=== PATIENT | male | born 1975 | race Two or more races ===

== ENCOUNTER 2018-03-11 11:26 | Inpatient (IN) | payer OTHER ==
[2018-03-11 12:05] VITALS: BMI 20.6
--- NOTE | 2018-03-11 15:43 | HP ---
CIWA Score Nausea/Vomitin Muscle Tremors: 2 Anxiety: 2 Agitation: 2 Paroxysmal Sweats: 1-Minimal Palms Moist Orientation: 0-Oriented Tacttile Disturbances: 1-Very Mild Itch/Numbness Auditory Disturbances: 1-Very Mild Visual Disturbances: 0-None Headache: 2-Mild CIWA-Ar Total Score: 13 - Admission Criteria OASAS Guidelines: Admission for Medically Managed Detox: Requires at least one of the followin. CIWA greater than 12 2. Seizures within the past 24 hours 3. Delirium tremens within the past 24 hours 4. Hallucinations within the past 24 hours 5. Acute intervention needed for co occurring medical disorder 6. Acute intervention needed for co occurring psychiatric disorder 7. Severe withdrawal that cannot be handled at a lower level of care (continued vomiting, continued diarrhea, abnormal vital signs) requiring intravenous medication and/or fluids 8. Patient presents the following: CIWA greater than 12 Admission Criteria Met: Admission criteria met Admission ROS [facility] - HPI Chief Complaint: i need help to stop drinking alcohol,cocaine,heroin abused,on methadone maintainence 75 mgs/day,.last medicated today, nicotine dependence weigh tloss depression,no medication longest time of sobriety 4 years Allergies/Adverse Reactions: Allergies Allergy/AdvReac Type Severity Reaction Status Date / Time nicotine [From Nicoderm CQ] Allergy Mild Rash Verified 03/11/18 16:53 No Known Drug Allergies Allergy Verified 03/11/18 16:49 nicotine transdermal Allergy Mild Rash Uncoded 03/11/18 13:31 History of Present Illness: this 42 years old male with alcohol,cocaine dependence,heroin abused,mmtp 75 mgs /day as mentioned Exam Limitations: No Limitations - Ebola screening Have you traveled outside of the country in the last 21 days: No Have you had contact with anyone from an Ebola affected area: No Have you been sick,other than usual withdrawal symptoms: No - Review of Systems Constitutional: Loss of Appetite, Malaise, Night Sweats, Changes in sleep, Unintentional Wgt. Loss EENT: reports: Nose Congestion Respiratory: reports: No Symptoms reported Cardiac: reports: No Symptoms Reported GI: reports: Diarrhea, Nausea, Abdominal cramping : reports: No Symptoms Reported Musculoskeletal: reports: Back Pain, Muscle Pain Integumentary: reports: Dryness Neuro: reports: Headache, Tremors Endocrine: reports: No Symptoms Reported Hematology: reports: No Symptoms Reported Psychiatric: reports: No Sypmtoms Reported, Mood/Affect Appropiate, Orientated x3, Depressed (depression no med) Patient History - Patient Medical History Hx Anemia: No Hx Asthma: Yes (as a child) Hx Chronic Obstructive Pulmonary Disease (COPD): No Hx Cancer: No Hx Cardiac Disorders: No Hx Congestive Heart Failure: No Hx Hypertension: No Hx Hypercholesterolemia: No Hx Pacemaker: No HX Cerebrovascular Accident: No Hx Seizures: No Hx Dementia: No Hx Diabetes: No Hx Gastrointestinal Disorders: No Hx Liver Disease: No Hx Genitourinary Disorders: No Hx Sexually Transmitted Disorders: No Hx Renal Disease (ESRD): No Hx Thyroid Disease: No Hx Human Immunodeficiency Virus (HIV): No (09/17 negative) Hx Hepatitis C: Yes (treated) Hx Depression: Yes (no med) Hx Suicide Attempt: No Hx Bipolar Disorder: No Hx Schizophrenia: No Other Medical History: mno suicidal,no homicidal - Patient Surgical History Past Surgical History: No Hx Neurologic Surgery: No Hx Cataract Extraction: No Hx Cardiac Surgery: No Hx Lung Surgery: No Hx Breast Surgery: No Hx Breast Biopsy: No Hx Abdominal Surgery: No Hx Appendectomy: No Hx Cholecystectomy: No Hx Genitourinary Surgery: No Hx Section: No Hx Orthopedic Surgery: No Anesthesia Reaction: No - PPD History Previous Implant?: Yes Documented Results: Negative w/proof Implanted On Prior [facility] Admission?: Yes Date: 12/16/13 Results: 0 mm PPD to be Administered?: Yes - Smoking Cessation Smoking history: Current every day smoker Have you smoked in the past 12 months: Yes Aproximately how many cigarettes per day: 10 Hx Chewing Tobacco Use: No Initiated information on smoking cessation: Yes 'Breaking Loose' booklet given: 03/11/18 - Substance & Tx. History Hx Alcohol Use: Yes Hx Substance Use: Yes Substance Use Type: Alcohol, Cocaine, Heroin Hx Substance Use Treatment: Yes ([facility] in 2013) - Substances Abused Heroin Route: Injection Frequency: Daily Amount used: 8-10 bags Age of first use: 13 Date of Last Use: 03/11/18 Cocaine Route: Injection Frequency: Daily Amount used: $80 Age of first use: 13 Date of Last Use: 03/11/18 Alcohol-beer Route: Oral Frequency: Daily Amount used: 1-6 pk. Age of first use: 13 Date of Last Use: 03/10/18 Family Disease History - Family Disease History Family History: Denies Admission Physical Exam [facility] - Vital Signs Vital Signs: Vital Signs - 24 hr 03/11/18 11:59 Temperature 98.1 F Pulse Rate 80 Respiratory 18 Rate Blood Pressure 114/75 - Physical General Appearance: Yes: Moderate Distress, Tremorous, Irritable, Sweating, Anxious HEENTM: Yes: Normal ENT Inspection, PORFIRIO, Pharynx Normal Respiratory: Yes: Lungs Clear, Normal Breath Sounds, No Respiratory Distress Neck: Yes: Within Normal Limits, Supple, Trachea in good position Breast: Yes: Within Normal Limits Cardiology: Yes: Regular Rhythm, Regular Rate, S1, S2 Abdominal: Yes: Within Normal Limits, Normal Bowel Sounds, Non Tender, Flat, Soft Genitourinary: Yes: Within Normal Limits Musculoskeletal: Yes: Back pain, Muscle Pain Extremities: Yes: Within Normal Limits, Normal Range of Motion, Tremors Neurological: Yes: senior tax analyst II-XII NML intact, Fully Oriented, Alert, Motor Strength 5/5 Integumentary: Yes: Dry Lymphatic: Yes: Within Normal Limits - Diagnostic (1) Alcohol dependence with uncomplicated withdrawal Current Visit: Yes Status: Acute (2) Cocaine dependence Current Visit: Yes Status: Acute (3) Heroin abuse Current Visit: Yes Status: Acute (4) Methadone maintenance therapy patient Current Visit: Yes Status: Acute (5) Hepatitis C Current Visit: Yes Status: Acute (6) Weight loss Current Visit: Yes Status: Acute (7) Dehydration Current Visit: Yes Status: Acute Cleared for Admission [facility] - Detox or Rehab [facility] Level of Care: Medically Managed Detox Regimen/Protocol: Librium [facility] Breath Alcohol Content Breath Alcohol Content: 0 Urine Drug Screen - Results Drug Screen Negative: No Urine Drug Screen Results: KAPIL-Cocaine, OPI-Opiates, MTD-Methadone
[2018-03-11] MEDS ORDERED: MAGNESIUM HYDROX 2400MG/30ML ORAL SUSPENSION 30 ML CUP PO PRN (15:51)
[2018-03-11] MEDS ORDERED: P-EPHED 60MG/TRIPROLIDI 2.5MG TABLET PO PRN (15:51)
[2018-03-11] MEDS ORDERED: ACETAMINOPHEN 325 MG TABLET (FP) PO PRN (15:51)
[2018-03-11] MEDS ORDERED: chlordiazePOXIDE HCL 25 MG CAPSULE PO PRN (15:51)
[2018-03-11] MEDS ORDERED: MAGNESIUM CITRATE 300 ML BOTTLE PO PRN (15:51)
[2018-03-11] MEDS ORDERED: guaiFENesin/D-METHORPHAN HB 10 ML UNIT-DOSE CUPS PO PRN (15:51)
[2018-03-11] MEDS ORDERED: MENTHOL/PHENOL 1 EACH UD MM PRN (15:51)
[2018-03-11] MEDS ORDERED: MAG HYDROX/AL HYDROX/SIMETH 30 ML UNIT-DOSE CUP PO PRN (15:51)
[2018-03-11] MEDS ORDERED: NICOTINE POLACRILEX 2 MG GUM BC PRN (15:51)
[2018-03-11] MEDS ORDERED: LOPERAMIDE HCL 2 MG CAPSULE PO PRN (15:51)
[2018-03-11] MEDS ORDERED: hydrOXYzine PAMOATE 50 MG CAPSULE (FP) PO PRN (15:51)
[2018-03-11] MEDS ORDERED: IBUPROFEN 400 MG TABLET (FP) PO PRN (15:51)
[2018-03-11] MEDS: chlordiazePOXIDE HCL 25 MG CAPSULE PO SCH ×2 (18:04→22:36)
[2018-03-11] MEDS: MELATONIN 5 MG TABLETS PO PRN (22:37)
[2018-03-11] MEDS: THIAMINE HCL 100 MG TABLET (FP) PO SCH (22:37)
[2018-03-12] MEDS: chlordiazePOXIDE HCL 25 MG CAPSULE PO SCH ×4 (05:34→22:21)
[2018-03-12] MEDS ORDERED: METHADONE HCL 40 MG DISPERSABLE TABLET ONE (05:36)
[2018-03-12] MEDS ORDERED: METHADONE HCL 10 MG TABLET ONE (05:36)
[2018-03-12] MEDS ORDERED: METHADONE HCL 5 MG TABLET ONE (05:37)
[2018-03-12] MEDS: METHADONE 40 MG, METHADONE 30 MG, METHADONE 5 MG PO SCH (05:37)
[2018-03-12] MEDS ORDERED: METHADONE HCL 40 MG DISPERSABLE TABLET PO SCH (06:00)
[2018-03-12] MEDS: PRENATAL VITAMINS W/ FOLIC ACID TABLET (FP) PO SCH (10:36)
[2018-03-12 11:03] LABS: ALK PHOS 128 U/L (45-117); ANION GAP 6 MMOL/L (8-16); BILIRUBIN,TOTAL 0.4 mg/dL (0.2-1); BLOOD UREA NITROGEN 15 mg/dL (7-18); CALCIUM 9.1 mg/dL (8.5-10.1); CHLORIDE 105 mmol/L (98-107); CO2 30 mmol/L (21-32); CREATININE 0.9 mg/dL (0.55-1.3); GLUCOSE,RANDOM 68 mg/dL (74-106); POTASSIUM 4.2 mmol/L (3.5-5.1); SGOT/AST 24 U/L (15-37); SGPT/ALT 32 U/L (13-61); SODIUM 141 mmol/L (136-145); TOT PROT 7.6 g/dl (6.4-8.2)
[2018-03-12 11:09] LABS: HEMATOCRIT 42.5 % (35.4-49); HEMOGLOBIN 13.7 GM/dL (11.7-16.9); MCH 29.6 pg (25.7-33.7); MCHC 32.3 g/dl (32.0-35.9); MEAN CELL VOLUME 91.5 fl (80-96); MEAN PLT VOLUME 9.1 fl (7.5-11.1); PLATELET COUNT 248 K/MM3 (134-434); RBC 4.65 M/mm3 (4.00-5.60); RDW 15.5 % (11.9-15.9); WHITE BLOOD COUNT 6.8 K/mm3 (4.0-10.0)
--- NOTE | 2018-03-12 12:57 | PN ---
S CIWA - CIWA Score Nausea/Vomitin-Mild Nausea/No Vomiting Muscle Tremors: 3 Anxiety: 3 Agitation: 2 Paroxysmal Sweats: 1-Minimal Palms Moist Orientation: 1-Uncertain about Date Tacttile Disturbances: 0-None Auditory Disturbances: 0-None Visual Disturbances: 0-None Headache: 2-Mild CIWA-Ar Total Score: 13 S Progress Note (SOAP) Subjective: trouble sleep at night low energy tremor anxiety sweat Objective: 03/12/18 12:57 Vital Signs Temperature 98.9 F 03/12/18 12:21 Pulse Rate 87 03/12/18 12:21 Respiratory Rate 18 03/12/18 12:21 Blood Pressure 112/80 03/12/18 12:21 O2 Sat by Pulse Oximetry (%) Laboratory Last Values WBC 6.8 K/mm3 (4.0-10.0) 03/12/18 05:45 RBC 4.65 M/mm3 (4.00-5.60) 03/12/18 05:45 Hgb 13.7 GM/dL (11.7-16.9) 03/12/18 05:45 Hct 42.5 % (35.4-49) 03/12/18 05:45 MCV 91.5 fl (80-96) 03/12/18 05:45 MCH 29.6 pg (25.7-33.7) 03/12/18 05:45 MCHC 32.3 g/dl (32.0-35.9) 03/12/18 05:45 RDW 15.5 % (11.9-15.9) 03/12/18 05:45 Plt Count 248 K/MM3 (134-434) D 03/12/18 05:45 MPV 9.1 fl (7.5-11.1) 03/12/18 05:45 Sodium 141 mmol/L (136-145) 03/12/18 05:45 Potassium 4.2 mmol/L (3.5-5.1) 03/12/18 05:45 Chloride 105 mmol/L (98-107) 03/12/18 05:45 Carbon Dioxide 30 mmol/L (21-32) 03/12/18 05:45 Anion Gap 6 MMOL/L (8-16) L 03/12/18 05:45 BUN 15 mg/dL (7-18) 03/12/18 05:45 Creatinine 0.9 mg/dL (0.55-1.3) 03/12/18 05:45 Creat Clearance w eGFR > 60 (>60) 03/12/18 05:45 Random Glucose 68 mg/dL (74-106) L 03/12/18 05:45 Calcium 9.1 mg/dL (8.5-10.1) 03/12/18 05:45 Total Bilirubin 0.4 mg/dL (0.2-1) 03/12/18 05:45 AST 24 U/L (15-37) 03/12/18 05:45 ALT 32 U/L (13-61) 03/12/18 05:45 Alkaline Phosphatase 128 U/L (45-117) H 03/12/18 05:45 Total Protein 7.6 g/dl (6.4-8.2) 03/12/18 05:45 Albumin 4.0 g/dl (3.4-5.0) 03/12/18 05:45 RPR Titer Nonreactive (NONREACTIVE) 03/12/18 05:45 HIV 1&2 Antibody Screen Negative 03/11/18 14:30 HIV P24 Antigen Negative 03/11/18 14:30 lab noted Assessment: 03/12/18 12:57 withdrawal sx Plan: continue detox
[2018-03-12] MEDS: THIAMINE HCL 100 MG TABLET (FP) PO SCH (22:21)
[2018-03-13] MEDS ORDERED: METHADONE HCL 10 MG TABLET ONE (04:48)
[2018-03-13] MEDS ORDERED: METHADONE HCL 5 MG TABLET ONE (04:49)
[2018-03-13] MEDS ORDERED: METHADONE HCL 40 MG DISPERSABLE TABLET ONE (04:49)
[2018-03-13] MEDS: chlordiazePOXIDE HCL 25 MG CAPSULE PO SCH ×2 (05:47→12:34)
[2018-03-13] MEDS: METHADONE 40 MG, METHADONE 30 MG, METHADONE 5 MG PO SCH (05:47)
--- NOTE | 2018-03-13 10:09 | PN ---
S CIWA - CIWA Score Nausea/Vomitin-No Nausea/No Vomiting Muscle Tremors: 3 Anxiety: 2 Agitation: 3 Paroxysmal Sweats: 1-Minimal Palms Moist Orientation: 0-Oriented Tacttile Disturbances: 0-None Auditory Disturbances: 0-None Visual Disturbances: 0-None Headache: 2-Mild CIWA-Ar Total Score: 11 S Progress Note (SOAP) Subjective: tremor sweat anxiety requests methadone gives at 10 am Objective: 03/13/18 10:08 Vital Signs Temperature 96.7 F L 03/13/18 09:18 Pulse Rate 83 03/13/18 09:18 Respiratory Rate 17 03/13/18 09:18 Blood Pressure 101/65 03/13/18 09:18 O2 Sat by Pulse Oximetry (%) Laboratory Last Values WBC 6.8 K/mm3 (4.0-10.0) 03/12/18 05:45 RBC 4.65 M/mm3 (4.00-5.60) 03/12/18 05:45 Hgb 13.7 GM/dL (11.7-16.9) 03/12/18 05:45 Hct 42.5 % (35.4-49) 03/12/18 05:45 MCV 91.5 fl (80-96) 03/12/18 05:45 MCH 29.6 pg (25.7-33.7) 03/12/18 05:45 MCHC 32.3 g/dl (32.0-35.9) 03/12/18 05:45 RDW 15.5 % (11.9-15.9) 03/12/18 05:45 Plt Count 248 K/MM3 (134-434) D 03/12/18 05:45 MPV 9.1 fl (7.5-11.1) 03/12/18 05:45 Sodium 141 mmol/L (136-145) 03/12/18 05:45 Potassium 4.2 mmol/L (3.5-5.1) 03/12/18 05:45 Chloride 105 mmol/L (98-107) 03/12/18 05:45 Carbon Dioxide 30 mmol/L (21-32) 03/12/18 05:45 Anion Gap 6 MMOL/L (8-16) L 03/12/18 05:45 BUN 15 mg/dL (7-18) 03/12/18 05:45 Creatinine 0.9 mg/dL (0.55-1.3) 03/12/18 05:45 Creat Clearance w eGFR > 60 (>60) 03/12/18 05:45 Random Glucose 68 mg/dL (74-106) L 03/12/18 05:45 Calcium 9.1 mg/dL (8.5-10.1) 03/12/18 05:45 Total Bilirubin 0.4 mg/dL (0.2-1) 03/12/18 05:45 AST 24 U/L (15-37) 03/12/18 05:45 ALT 32 U/L (13-61) 03/12/18 05:45 Alkaline Phosphatase 128 U/L (45-117) H 03/12/18 05:45 Total Protein 7.6 g/dl (6.4-8.2) 03/12/18 05:45 Albumin 4.0 g/dl (3.4-5.0) 03/12/18 05:45 RPR Titer Nonreactive (NONREACTIVE) 03/12/18 05:45 HIV 1&2 Antibody Screen Negative 03/11/18 14:30 HIV P24 Antigen Negative 03/11/18 14:30 lab noted Assessment: 03/13/18 10:09 withdrawal sx Plan: continue detox
[2018-03-13] MEDS: PRENATAL VITAMINS W/ FOLIC ACID TABLET (FP) PO SCH (10:34)
[2018-03-13] MEDS: chlordiazePOXIDE 5 MG CAPSULE PO SCH ×2 (17:38→22:38)
[2018-03-13] MEDS: THIAMINE HCL 100 MG TABLET (FP) PO SCH (22:38)
[2018-03-13] MEDS: MELATONIN 5 MG TABLETS PO PRN (23:36)
[2018-03-14] MEDS: chlordiazePOXIDE 5 MG CAPSULE PO SCH ×2 (05:25→11:32)
[2018-03-14] MEDS ORDERED: ONDANSETRON *ODT* 4 MG TABLET SL ONE (08:32)
--- NOTE | 2018-03-14 12:08 | PN ---
[facility] Progress Note (SOAP) Subjective: reported mild alcohol withdrawal sx today had "dirty" water after breakfast vomited out food residue and continue vomiting "can not stop" bp 99/65 ap 60 rr 17 abdomen + BS x 4 soft none tender Objective: 03/14/18 12:07 Vital Signs Temperature 96.9 F L 03/14/18 09:00 Pulse Rate 60 03/14/18 09:00 Respiratory Rate 16 03/14/18 09:00 Blood Pressure 99/65 03/14/18 09:00 O2 Sat by Pulse Oximetry (%) Laboratory Last Values WBC 6.8 K/mm3 (4.0-10.0) 03/12/18 05:45 RBC 4.65 M/mm3 (4.00-5.60) 03/12/18 05:45 Hgb 13.7 GM/dL (11.7-16.9) 03/12/18 05:45 Hct 42.5 % (35.4-49) 03/12/18 05:45 MCV 91.5 fl (80-96) 03/12/18 05:45 MCH 29.6 pg (25.7-33.7) 03/12/18 05:45 MCHC 32.3 g/dl (32.0-35.9) 03/12/18 05:45 RDW 15.5 % (11.9-15.9) 03/12/18 05:45 Plt Count 248 K/MM3 (134-434) D 03/12/18 05:45 MPV 9.1 fl (7.5-11.1) 03/12/18 05:45 Sodium 141 mmol/L (136-145) 03/12/18 05:45 Potassium 4.2 mmol/L (3.5-5.1) 03/12/18 05:45 Chloride 105 mmol/L (98-107) 03/12/18 05:45 Carbon Dioxide 30 mmol/L (21-32) 03/12/18 05:45 Anion Gap 6 MMOL/L (8-16) L 03/12/18 05:45 BUN 15 mg/dL (7-18) 03/12/18 05:45 Creatinine 0.9 mg/dL (0.55-1.3) 03/12/18 05:45 Creat Clearance w eGFR > 60 (>60) 03/12/18 05:45 Random Glucose 68 mg/dL (74-106) L 03/12/18 05:45 Calcium 9.1 mg/dL (8.5-10.1) 03/12/18 05:45 Total Bilirubin 0.4 mg/dL (0.2-1) 03/12/18 05:45 AST 24 U/L (15-37) 03/12/18 05:45 ALT 32 U/L (13-61) 03/12/18 05:45 Alkaline Phosphatase 128 U/L (45-117) H 03/12/18 05:45 Total Protein 7.6 g/dl (6.4-8.2) 03/12/18 05:45 Albumin 4.0 g/dl (3.4-5.0) 03/12/18 05:45 RPR Titer Nonreactive (NONREACTIVE) 03/12/18 05:45 HIV 1&2 Antibody Screen Negative 03/11/18 14:30 HIV P24 Antigen Negative 03/11/18 14:30 lab noted Assessment: 03/14/18 12:07 mild alcohol withdrawal sx vomiting Plan: medically supervised detox patient requests ER evaluation for vomiting from "dirty" water ambulance called information provided to ER disposition: based on the timing of release from ER once medically cleared 1. return to detox discharge 03/15/18 to [facility] 2. [facility]hab if possible on 03/15/18
[2018-03-14] MEDS ORDERED: METHADONE HCL 10 MG TABLET PO ONE (15:55)
[2018-03-14] MEDS ORDERED: METHADONE 40 MG, METHADONE 30 MG, METHADONE 5 MG PO ONE (16:30)
[2018-03-14] MEDS ORDERED: METHADONE HCL 10 MG TABLET ONE (16:48)
[2018-03-14] MEDS ORDERED: METHADONE HCL 40 MG DISPERSABLE TABLET ONE (16:49)
[2018-03-14] MEDS ORDERED: METHADONE HCL 5 MG TABLET ONE (16:49)
[2018-03-14] MEDS: METHADONE 40 MG, METHADONE 30 MG, METHADONE 5 MG PO SCH (16:53)
[2018-03-14] MEDS: PRENATAL VITAMINS W/ FOLIC ACID TABLET (FP) PO SCH (16:54)
[2018-03-14] MEDS: chlordiazePOXIDE HCL 10 MG CAPSULE PO SCH ×2 (16:57→22:10)
--- NOTE | 2018-03-14 17:29 | PN ---
[facility] Progress Note (SOAP) Subjective: Patient returns from ER and states is feeling a little better but nausea continues. Denies recent vomiting. Denies abdominal pain. Objective: Returned from [facility] ER post evaluation of vomiting. Alert. Abd S/NT/BS hyperactive. Vital Signs 03/14/18 17:28 Temperature 97.0 F L Pulse Rate 74 Respiratory 18 Rate Blood Pressure 117/82 Assessment: Nausea Withdrawal symptoms Plan: Continue detox. Tigan prn.
[2018-03-14] MEDS ORDERED: TRIMETHOBENZAMIDE HCL 300 MG CAPSULE PO PRN (21:33)
[2018-03-14] MEDS: THIAMINE HCL 100 MG TABLET (FP) PO SCH (22:10)
[2018-03-15] MEDS: MELATONIN 5 MG TABLETS PO PRN (00:44)
[2018-03-15] MEDS ORDERED: METHADONE HCL 5 MG TABLET ONE ×2 (04:50→08:57)
[2018-03-15] MEDS ORDERED: METHADONE HCL 40 MG DISPERSABLE TABLET ONE ×2 (04:50→08:57)
[2018-03-15] MEDS ORDERED: METHADONE HCL 10 MG TABLET ONE ×2 (04:50→08:57)
[2018-03-15] MEDS: chlordiazePOXIDE HCL 10 MG CAPSULE PO SCH ×2 (07:29→10:14)
--- NOTE | 2018-03-15 09:20 | PN ---
[facility] Progress Note (SOAP) Subjective: I'M better Objective: 03/15/18 09:17 Vital Signs Temperature 97.1 F L 03/15/18 06:08 Pulse Rate 57 L 03/15/18 06:08 Respiratory Rate 18 03/15/18 06:08 Blood Pressure 90/62 03/15/18 06:08 O2 Sat by Pulse Oximetry (%) Laboratory Tests 03/11/18 03/12/18 03/12/18 14:30 05:45 05:45 WBC 6.8 RBC 4.65 Hgb 13.7 Hct 42.5 MCV 91.5 MCH 29.6 MCHC 32.3 RDW 15.5 Plt Count 248 D MPV 9.1 Sodium 141 Potassium 4.2 Chloride 105 Carbon Dioxide 30 Anion Gap 6 L BUN 15 Creatinine 0.9 Creat Clearance w eGFR > 60 Random Glucose 68 L Calcium 9.1 Total Bilirubin 0.4 AST 24 ALT 32 Alkaline Phosphatase 128 H Total Protein 7.6 Albumin 4.0 RPR Titer HIV 1&2 Antibody Screen Negative HIV P24 Antigen Negative 03/12/18 05:45 WBC RBC Hgb Hct MCV MCH MCHC RDW Plt Count MPV Sodium Potassium Chloride Carbon Dioxide Anion Gap BUN Creatinine Creat Clearance w eGFR Random Glucose Calcium Total Bilirubin AST ALT Alkaline Phosphatase Total Protein Albumin RPR Titer Nonreactive HIV 1&2 Antibody Screen HIV P24 Antigen pt aox3 in nad ambulating Assessment: 03/15/18 09:18 detox completed Plan: d/c today cont fluids resume rx'ed meds
--- NOTE | 2018-03-15 09:23 | DS ---
[facility] Detox Discharge Summary Admission Date: 03/11/18 Discharge Date: 03/15/18 - History Present History: Alcohol Dependence, Cocaine Dependence - Physical Exam Results Vital Signs: Vital Signs Temperature 97.1 F L 03/15/18 06:08 Pulse Rate 57 L 03/15/18 06:08 Respiratory Rate 18 03/15/18 06:08 Blood Pressure 90/62 03/15/18 06:08 O2 Sat by Pulse Oximetry (%) - Treatment Hospital Course: Detox Protocol Followed, Detoxed Safely, Responded well, Discharged Condition Good Patient has Accepted a Rehab Referral to: [facility] [place] - Medication Discharge Medications: Ambulatory Orders NK [No Known Home Medication] 03/14/18 - Diagnosis (1) Alcohol dependence with uncomplicated withdrawal Current Visit: Yes Status: Chronic (2) Cocaine dependence Current Visit: Yes Status: Chronic Qualifiers: Substance use status: uncomplicated Qualified Code(s): F14.20 - Cocaine dependence, uncomplicated (3) Hepatitis C Current Visit: Yes Status: Chronic Qualifiers: Viral hepatitis chronicity: chronic (4) Methadone maintenance therapy patient Current Visit: Yes Status: Chronic - AMA Did Patient Leave Against Medical Advice: No
[2018-03-15] MEDS: PRENATAL VITAMINS W/ FOLIC ACID TABLET (FP) PO SCH (10:12)
[2018-03-15] MEDS: METHADONE 40 MG, METHADONE 30 MG, METHADONE 5 MG PO SCH (10:12)
[2018-03-15 10:47] VITALS: BP 106/68; PULSE 102; TEMP 97.4
== END 2018-03-15 12:40 | disposition other institution (70) | DRG 773 ==
LOC: YASAS 11:26 → Y3N 15:53
PROC: HZ2ZZZZ Detoxification Services for Substance Abuse Treatment (ICD-10-PCS; principal; 2018-03-11)
DX: F10.230 Alcohol dependence with withdrawal, uncomplicated (principal); F14.20 Cocaine dependence, uncomplicated; F11.20 Opioid dependence, uncomplicated; F11.10 Opioid abuse, uncomplicated; E86.0 Dehydration; B18.2 Chronic viral hepatitis C; R11.2 Nausea with vomiting, unspecified; R63.4 Abnormal weight loss; Z68.20 Body mass index [BMI] 20.0-20.9, adult; Z87.09 Personal history of other diseases of the respiratory system
CPT/HCPCS: 36415; 80053; 85027; 86593; 87389; Q0162

== ENCOUNTER 2018-03-14 10:01 | Emergency (ER) | payer OTHER ==
[2018-03-14 10:35] VITALS: TEMP 98; BMI 20.9
[2018-03-14] MEDS ORDERED: SODIUM CHLORIDE 1,000 ML IV STA (10:56)
--- NOTE | 2018-03-14 11:34 | PDOC ---
History of Present Illness - History of Present Illness Initial Comments: The patient is a 42M w/ a history of HCV s/p treatment (completed 6m ago) who presents for evaluation of 1d of nausea and vomiting s/p drinking questionable water while at [facility]. The patient reports that he drank the water because he did not know it was 'dirty.' He states that he vomited what he ate and drank this morning. He denies blood in his vomit. Denies fevers/chills, MALLOY, vision changes, chest pain, SOB, abdominal pain, C/D, dysuria, hematuria, or blood in his stool Has one day of detox/rehab left 03/14/18 11:35 <Iron Shea - Last Filed: 03/14/18 16:29> <Anju Gonzalez - Last Filed: 03/14/18 19:46> - General Chief Complaint: Nausea/Vomiting Stated Complaint: VOMITING Time Seen by Provider: 03/14/18 10:55 Past History - Past Medical History Anemia: No Asthma: Yes (as a child) Cancer: No Cardiac Disorders: No CVA: No COPD: No CHF: No Dementia: No Diabetes: No GI Disorders: No Disorders: No HTN: No Hypercholesterolemia: No Kidney Stones: No Liver Disease: No Seizures: No Thyroid Disease: No - Surgical History Abdominal Surgery: No Appendectomy: No Cardiac Surgery: No Cholecystectomy: No Lung Surgery: No Neurologic Surgery: No Orthopedic Surgery: No - Reproductive History Testicular Surgery: No - Suicide/Smoking/Psychosocial Hx Smoking Status: Yes Smoking History: Current every day smoker Have you smoked in the past 12 months: Yes Number of Cigarettes Smoked Daily: 10 Information on smoking cessation initiated: No 'Breaking Loose' booklet given: 03/11/18 Hx Alcohol Use: Yes Drug/Substance Use Hx: Yes Substance Use Type: Alcohol, Cocaine, Heroin Hx Substance Use Treatment: Yes ([facility]) <Iron Shea - Last Filed: 03/14/18 16:29> <Anju Gonzalez - Last Filed: 03/14/18 19:46> - Past Medical History Allergies/Adverse Reactions: Allergies Allergy/AdvReac Type Severity Reaction Status Date / Time nicotine [From Nicoderm CQ] Allergy Mild Rash Verified 03/14/18 10:37 nicotine transdermal Allergy Mild Rash Uncoded 03/14/18 10:37 Home Medications: Ambulatory Orders NK [No Known Home Medication] 03/14/18 Review of Systems - Review of Systems Able to Perform ROS?: Yes Comments:: GENERAL/CONSTITUTIONAL: No fever or chills. No weakness HEAD, EYES, EARS, NOSE AND THROAT: No change in vision. No ear pain or discharge. No sore throat CARDIOVASCULAR: No chest pain or shortness of breath RESPIRATORY: Denies cough, hemoptysis GASTROINTESTINAL: per HPI GENITOURINARY: No dysuria, frequency, or change in urination MUSCULOSKELETAL: No joint or muscle swelling or pain. No neck or back pain SKIN: No rash NEUROLOGIC: No headache, vertigo, loss of consciousness, or change in strength/ sensation ENDOCRINE: No increased thirst. No abnormal weight change HEMATOLOGIC/LYMPHATIC: No anemia, easy bleeding, or history of blood clots ALLERGIC/IMMUNOLOGIC: No hives or skin allergy 03/14/18 11:34 Is the patient limited Occitan proficient: No <Iron Shea - Last Filed: 03/14/18 16:29> *Physical Exam - Vital Signs Last Vital Signs Temp Pulse Resp BP Pulse Ox 98.0 F 69 16 97/51 L 96 03/14/18 10:10 03/14/18 10:10 03/14/18 10:10 03/14/18 10:10 03/14/18 10:10 - Physical Exam Comments: GENERAL: Awake, alert, and fully oriented, in no acute distress HEAD: No signs of trauma, normocephalic, atraumatic EYES: PERRLA, EOMI, sclera anicteric, conjunctiva clear ENT: Hearing grossly normal, nares patent, oropharynx clear without exudates. Moist mucosa LUNGS: No distress, speaks full sentences, clear to auscultation bilaterally HEART: Regular rate and rhythm, normal S1 and S2, no murmurs appreciated, peripheral pulses normal and equal bilaterally ABDOMEN: Soft, epigastric TTP w/o rebound or guarding, normoactive bowel sounds EXTREMITIES : Normal inspection, Normal range of motion, no edema. No clubbing or cyanosis NEUROLOGICAL: Cranial nerves II through XII grossly intact. Normal speech, normal gait, no focal sensorimotor deficits SKIN: Warm, Dry, normal turgor, no rashes or lesions noted 03/14/18 11:35 <Iron Shea - Last Filed: 03/14/18 16:29> - Vital Signs Last Vital Signs Temp Pulse Resp BP Pulse Ox 98.0 F 65 16 107/61 98 03/14/18 10:10 03/14/18 13:49 03/14/18 13:49 03/14/18 13:49 03/14/18 13:49 <Anju Gonzalez - Last Filed: 03/14/18 19:46> Moderate Sedation - Procedure Monitoring Vital Signs: Procedure Monitoring Vital Signs Temperature 98.0 F 03/14/18 10:10 Pulse Rate 69 03/14/18 10:10 Respiratory Rate 16 03/14/18 10:10 Blood Pressure 97/51 L 03/14/18 10:10 O2 Sat by Pulse Oximetry (%) 96 03/14/18 10:10 <Iron Shea - Last Filed: 03/14/18 16:29> - Procedure Monitoring Vital Signs: Procedure Monitoring Vital Signs Temperature 98.0 F 03/14/18 10:10 Pulse Rate 65 03/14/18 13:49 Respiratory Rate 16 03/14/18 13:49 Blood Pressure 107/61 03/14/18 13:49 O2 Sat by Pulse Oximetry (%) 98 03/14/18 13:49 <Anju Gonzalez - Last Filed: 03/14/18 19:46> ED Treatment Course - LABORATORY CBC & Chemistry Diagram: 03/14/18 11:06 03/14/18 11:06 <Iron Shea - Last Filed: 03/14/18 16:29> - LABORATORY CBC & Chemistry Diagram: 03/14/18 11:06 03/14/18 11:06 - ADDITIONAL ORDERS Additional order review: Laboratory Results 03/14/18 03/14/18 12:12 11:06 Sodium 136 Potassium 5.7 H Chloride 100 Carbon Dioxide 32 Anion Gap 4 L BUN 15 Creatinine 0.8 Creat Clearance w eGFR > 60 Random Glucose 92 Calcium 9.4 Total Bilirubin 0.4 AST 38 H ALT 36 Alkaline Phosphatase 132 H Total Protein 8.0 Albumin 4.1 Lipase 152 Urine Color Colorless Urine Appearance Clear Urine pH 8.0 D Ur Specific [place] 1.003 L Urine Protein Negative Urine Glucose (UA) Negative Urine Ketones Negative Urine Blood Negative Urine Nitrite Negative Urine Bilirubin Negative Urine Urobilinogen Negative Ur Leukocyte Esterase Negative 03/14/18 11:06 RBC 5.19 MCV 90.0 MCHC 34.2 RDW 15.5 MPV 8.3 Neutrophils % 58.9 Lymphocytes % 29.0 Monocytes % 8.7 Eosinophils % 3.0 Basophils % 0.4 - Medications Given in the ED: ED Medications Discontinued Medications Generic Name Dose Route Start Last Admin Trade Name Freq PRN Reason Stop Dose Admin Famotidine/Sodium Chloride 20 mg in 50 mls @ 100 mls/hr 03/14/18 12:15 12:28 Pepcid 20 Mg Premixed Ivpb - IVPB 03/14/18 12:44 100 mls/hr ONCE ONE Administration Sodium Chloride 1,000 mls @ 1,000 mls/hr 03/14/18 10:56 03/14/18 12:00 Normal Saline - IV 03/14/18 11:55 1,000 mls/hr ASDIR STA Administration Metoclopramide HCl 10 mg 03/14/18 11:44 03/14/18 12:28 Reglan Injection - IVPUSH 03/14/18 11:45 10 mg ONCE ONE Administration <Anju Gonzalez - Last Filed: 03/14/18 19:46> Medical Decision Making - Medical Decision Making The patient is a 42M w/ a history of HCV s/p treatment who presents for evaluation of nausea and NBNB emesis x3 today ED Course CMP, lipase, UA Famotidine, 1L NS, Reglan 03/14/18 11:49 No leukocytosis No anemia 03/14/18 11:52 Mild hyperkalemia 5.7 Otherwise lytes wnl LFTs wnl No PEPE Lipase wnl 03/14/18 12:41 Patient's repeat BP improved No further vomiting observed in the ED Patient ambulating independently in the ED w/o dizziness Patient becoming irritable and combative because his Methadone dose is due and he wishes to return to [facility] Patient removed his own IV and began to walk around the ED with blood dripping from his arm. Repeated attempts requesting that the patient stop doing so were unsuccessful. Security was then called and were able to detain the patient to an area where his active bleed was stopped. The patient's BP on repeat was improved. 03/14/18 13:58 Plan for D/C back to [facility] to continue therapy there Dispo: D/C to [facility] 03/14/18 14:14 Transportation scheduled to [facility]. Transportation delayed multiple times. Patient became agitated again and verbally abusive to myself and staff. He threatened the staff, including phrases such as, "I'll wait for you." "I'll follow you to your car and kill you." Patient spit at myself and also threatened to follow me and that he'd 'find' me. Ernestina RICHMOND called. Report given. [facility] contacted, updated report given. Police spoke with [facility]. Patient refused to sign D/C paperwork 03/14/18 16:29 <Iron Shea - Last Filed: 03/14/18 16:29> *DC/Admit/Observation/Transfer - Discharge Dispostion Decision to Admit order: No <Iron Shea - Last Filed: 03/14/18 16:29> <Anju Gonzalez - Last Filed: 03/14/18 19:46> Diagnosis at time of Disposition: Hepatitis C carrier Nausea and vomiting Qualifiers: Vomiting type: unspecified Vomiting Intractability: non-intractable Qualified Code(s): R11.2 - Nausea with vomiting, unspecified - Discharge Dispostion Disposition: TRANSFER ACUTE CARE/OTHER HOSP Condition at time of disposition: Stable - Referrals [place]: [facility] [place] [facility] [Provider Group] - Patient Instructions Printed Discharge Instructions: DI for Vomiting -- Adult
[2018-03-14 11:35] LABS: BASO % 0.4 % (0-2.0); HEMATOCRIT 46.7 % (35.4-49); MCH 30.8 pg (25.7-33.7); MCHC 34.2 g/dl (32.0-35.9); MEAN PLT VOLUME 8.3 fl (7.5-11.1); MONO % 8.7 % (3.8-10.2); NEUT % 58.9 % (42.8-82.8); PLATELET COUNT 279 K/MM3 (134-434); RBC 5.19 M/mm3 (4.00-5.60); RDW 15.5 % (11.9-15.9); WHITE BLOOD COUNT 6.2 K/mm3 (4.0-10.0)
[2018-03-14] MEDS ORDERED: METOCLOPRAMIDE HCL INJECTION 10 MG/2 ML VIAL IVPUSH ONE (11:44)
[2018-03-14] MEDS ORDERED: FAMOTIDINE 20 MG/50 ML IVPB 20 MG/50 ML MG IVPB ONE ×2 (12:15→12:27)
[2018-03-14 12:23] LABS: ALBUMIN 4.1 g/dl (3.4-5.0); ALK PHOS 132 U/L (45-117); ANION GAP 4 MMOL/L (8-16); BILIRUBIN,TOTAL 0.4 mg/dL (0.2-1); BLOOD UREA NITROGEN 15 mg/dL (7-18); CALCIUM 9.4 mg/dL (8.5-10.1); CHLORIDE 100 mmol/L (98-107); CO2 32 mmol/L (21-32); CREATININE 0.8 mg/dL (0.55-1.3); GLUCOSE,RANDOM 92 mg/dL (74-106); LIPASE 152 U/L (73-393); POTASSIUM 5.7 mmol/L (3.5-5.1); SGOT/AST 38 U/L (15-37); SGPT/ALT 36 U/L (13-61); SODIUM 136 mmol/L (136-145)
[2018-03-14] MEDS ORDERED: METOCLOPRAMIDE HCL INJECTION 10 MG/2 ML VIAL ONE (12:26)
[2018-03-14 13:00] LABS: URINE APPEARANCE CLEAR; URINE BILIRUBIN NEGATIVE (<2.0 mg/dL); URINE COLOR COLORLESS; URINE GLUCOSE (UA) NEGATIVE (NEGATIVE); URINE KETONE NEGATIVE (NEGATIVE); URINE LEUK ESTERASE NEGATIVE (NEGATIVE); URINE NITRITE NEGATIVE (NEGATIVE); URINE PROTEIN NEGATIVE (NEGATIVE); URINE UROBILINOGEN NEGATIVE mg/dL (0.2-1.0)
[2018-03-14 13:50] VITALS: BP 107/61; PULSE 65
--- NOTE | 2018-03-14 13:55 | PDOC ---
Attending Attestation - Resident Resident Name: [email or web address] - ED Attending Attestation I have performed the following: I have examined & evaluated the patient, The case was reviewed & discussed with the resident, I agree w/resident's findings & plan - HPI HPI: 03/14/18 13:47 The patient is a 42 year old male with a past medical history of HCV (last treated 6 months ago) here today from [facility] for evaluation of one day of nausea and vomiting. The patient reports that he drank dirty water at [facility] yesterday and then felt nausea. He notes associated vomiting. Patient denies headache, lightheadedness. Denies fever, chills. Denies chest pain, shortness of breath. Denies diarrhea, abdominal pain. Denies lower extremity edema. Denies urinary symptoms. Allergies: nicotine PCP: none reported at [facility] for detox now. 03/14/18 14:23 - Physicial Exam PE: 03/14/18 13:47 NAD, well appearing, PERRL, EOMI, MMM, nl conjunctiva, anicteric; neck supple. lungs clear, RRR, abdomen soft +epigastric ttp, no lower quad or RUQ tenderness. CARTER x4, no focal neuro deficits. No peripheral edema. normal color for ethnicity, WWP. - Medical Decision Making 03/14/18 13:48 See HPI for details Vital signs reviewed, wnl, normotensive on recheck. no tachycardia or distress. Prior notes reviewed, including admissions, discharges and consultations. laboratory results and imaging reviewed, basic labs and lytes wnl, with potassium mildly elevated 5.7, will repeat, notable for normal LFTs/lipase. UA neg ED course: given fluids, antiemetics and pepcid. feels better, comfortable in bed on reeval. no vomiting here. no bloody output. walking around the ED, appears well, nontoxic. eager to leave. pulled out his IV, got agitated, security to come to escort patient. call to [facility] for his methadone/care and to return for his detox no methadone to be given here. Dispo: DC in stable condition back to [facility], I discussed the physical exam findings, ancillary test results and final diagnoses with the patient. patient was satisfied with the care received and felt comfortable with the discharge plan and treatment plan. The patient will return to the Emergency Department with any new, persistent or worsening symptoms. 03/14/18 13:55 03/14/18 14:22
== END 2018-03-14 16:30 | disposition short-term general hospital (02) ==
LOC: JER 10:01
PROC: 3E033GC Introduction of Other Therapeutic Substance into Peripheral Vein, Percutaneous Approach (ICD-10-PCS; principal; 2018-03-14)
PROC: 3E0337Z Introduction of Electrolytic and Water Balance Substance into Peripheral Vein, Percutaneous Approach (ICD-10-PCS; 2018-03-14)
DX: B18.2 Chronic viral hepatitis C (principal); R11.2 Nausea with vomiting, unspecified; Z79.891 Long term (current) use of opiate analgesic; F17.210 Nicotine dependence, cigarettes, uncomplicated
CPT/HCPCS: 36415; 80053; 81003; 83690; 85025; 96361; 96365; 96375; 99282-25; J7030

== ENCOUNTER 2018-03-15 12:48 | Inpatient (IN) | payer OTHER ==
[2018-03-15] MEDS ORDERED: MAG HYDROX/AL HYDROX/SIMETH 30 ML UNIT-DOSE CUP PO PRN (14:31)
[2018-03-15] MEDS ORDERED: MAGNESIUM CITRATE 300 ML BOTTLE PO PRN (14:31)
[2018-03-15] MEDS ORDERED: NICOTINE POLACRILEX 4 MG GUM BUC PRN (14:31)
[2018-03-15] MEDS ORDERED: MENTHOL/PHENOL 1 EACH UD MM PRN (14:31)
[2018-03-15] MEDS ORDERED: IBUPROFEN 400 MG TABLET (FP) PO PRN (14:31)
[2018-03-15] MEDS ORDERED: hydrOXYzine PAMOATE 50 MG CAPSULE (FP) PO PRN (14:31)
[2018-03-15] MEDS ORDERED: LOPERAMIDE HCL 2 MG CAPSULE PO PRN (14:31)
[2018-03-15] MEDS ORDERED: guaiFENesin/D-METHORPHAN HB 10 ML UNIT-DOSE CUPS PO PRN (14:31)
[2018-03-15] MEDS ORDERED: ACETAMINOPHEN 325 MG TABLET (FP) PO PRN (14:31)
[2018-03-15] MEDS ORDERED: MAGNESIUM HYDROX 2400MG/30ML ORAL SUSPENSION 30 ML CUP PO PRN (14:31)
[2018-03-15] MEDS ORDERED: P-EPHED 60MG/TRIPROLIDI 2.5MG TABLET PO PRN (14:31)
--- NOTE | 2018-03-15 14:31 | HP ---
[facility] Rehab Assess/Revision - Findings Detox History & Physical reviewed: Yes Concur with findings: Yes (pt admitted for alcohol detox, on methadone) Inpatient Rehab Admission - Initial Determination Are CD services needed?: No Free of communicable disease: No Not in need of hospitalization: No - Rehab Admission Criteria Previous failed treatment: Yes Poor recovery environment: Yes Comorbidities: Yes Patient is meeting Inpatient Rehab admission criteria:: Yes (pt is on methadone)
--- NOTE | 2018-03-15 19:10 | HP ---
Psychiatrist Admission - Data Date of interview: 03/15/18 Admission source: Transfer from [address] [place] [address]. Identifying data: Case of a 42 y/o male who completed detoxification at [address] [place] [address], now transferred to [address] for rehabilitation treatment to address substance use disorders (heroin, cocaine, alcohol, nicotine) co- morbid with MDD and Anxiety Disorder. Patient is single, a father of one, domiciled, unemployed and supported on welfare. Medical History: Hepatitis C. Psychiatric History: No reported history of psychiatric hospitalizations. Patient declares the diagnoses of MDD and Anxiety Disorder. Mr Beckman is currently on methadone maintenance (75 mg/day) at the [facility]. He is prescribed zolpidem for insomnia. Denies history of suicide attempts. Physical/Sexual Abuse/Trauma History: Not discussed. Patient declines. Additional Comment: Substance abuse profile as noted in current [facility] report on admission to [address] [place] [address] : Smoking history: Current every day smoker. Have you smoked in the past 12 months: Yes. Aproximately how many cigarettes per day: 10. Hx Chewing Tobacco Use: No. Initiated information on smoking cessation: Yes. 'Breaking Loose' booklet given: 03/11/18. - Substance & Tx. History. Hx Alcohol Use: Yes. Hx Substance Use: Yes. Substance Use Type: Alcohol, Cocaine , Heroin. Hx Substance Use Treatment: Yes ([facility] in 2013). - Substances Abused. Heroin. Route: Injection. Frequency: Daily. Amount used: 8-10 bags. Age of first use: 13. Date of Last Use: 03/11/18. Cocaine. Route: Injection. Frequency: Daily. Amount used: $80. Age of first use: 13. Date of Last Use: 03/11/18. Alcohol-beer. Route: Oral. Frequency: Daily. Amount used: 1-6 pk. Age of first use: 13. Date of Last Use: 03/10/18. Urine Drug Screen Results: KAPIL-Cocaine, OPI-Opiates, MTD-Methadone. Noted. Allergies/Adverse Reactions: Allergies Allergy/AdvReac Type Severity Reaction Status Date / Time nicotine [From Nicoderm CQ] Allergy Mild Rash Verified 03/14/18 10:37 nicotine transdermal Allergy Mild Rash Uncoded 03/14/18 10:37 - Substance Abuse/Tx History Hx Alcohol Use: Yes (since age 13) Hx Substance Use: Yes (alcohol, cocaine, nicotine, heroin) Substance Use Type: Alcohol, Cocaine, Heroin Hx Substance Use Treatment: Yes (hx of admissions to [facility], on MMTP at [facility].) Mental Status Exam - Mental Status Exam Alert and Oriented to: Time, Place, Person Cognitive Function: Good Patient Appearance: Well Groomed Mood: Hopeful, Euthymic Affect: Appropriate, Normal Range Patient Behavior: Appropriate, Cooperative Speech Pattern: Clear, Appropriate Voice Loudness: Normal Thought Process: Intact, Goal Oriented Thought Disorder: Not Present Hallucinations: Denies Suicidal Ideation: Denies Homicidal Ideation: Denies Insight/Judgement: Fair Sleep: Poorly, Difficulty falling asleep Appetite: Good Muscle strength/Tone: Normal Gait/Station: Normal Psychiatric Findings - Problem List ([place] 1, 2,3) (1) Opioid dependence on agonist therapy Current Visit: Yes Status: Chronic (2) Cocaine dependence Current Visit: Yes Status: Chronic Qualifiers: Substance use status: uncomplicated Qualified Code(s): F14.20 - Cocaine dependence, uncomplicated (3) Alcohol dependence Current Visit: Yes Status: Chronic (4) Nicotine dependence Current Visit: Yes Status: Chronic (5) Insomnia Current Visit: Yes Status: Chronic - Initial Treatment Plan Initial Treatment Plan: Psychoeducation. Sleep hygiene. NA/AA meetings. Motivational sessions for the promotion of sobriety. Insomnia is addressed with melatonin at bedtime. patient is in agreement with this plan of care. Observation.
[2018-03-15] MEDS: THIAMINE HCL 100 MG TABLET (FP) PO SCH (22:42)
[2018-03-16] MEDS: MELATONIN 5 MG TABLETS PO PRN ×2 (01:31→21:18)
[2018-03-16] MEDS ORDERED: METHADONE HCL 40 MG DISPERSABLE TABLET ONE ×2 (05:57→09:20)
[2018-03-16] MEDS ORDERED: METHADONE HCL 10 MG TABLET ONE ×2 (05:57→09:19)
[2018-03-16] MEDS ORDERED: METHADONE HCL 5 MG TABLET ONE ×2 (05:58→09:20)
[2018-03-16] MEDS ORDERED: METHADONE HCL 10 MG TABLET PO ONE (06:00)
[2018-03-16] MEDS ORDERED: METHADONE 40 MG, METHADONE 30 MG, METHADONE 5 MG PO SCH (06:00)
[2018-03-16] MEDS ORDERED: METHADONE 40 MG, METHADONE 30 MG, METHADONE 5 MG PO ONE (06:00)
[2018-03-16] MEDS ORDERED: PT OWN MED DRAWER 7, Y5N ONE ×2 (08:55→10:57)
[2018-03-16] MEDS: METHADONE 40 MG, METHADONE 30 MG, METHADONE 5 MG PO SCH (10:35)
[2018-03-16] MEDS: PRENATAL VITAMINS W/ FOLIC ACID TABLET (FP) PO SCH (10:36)
[2018-03-16] MEDS: THIAMINE HCL 100 MG TABLET (FP) PO SCH (21:17)
[2018-03-17] MEDS ORDERED: METHADONE HCL 10 MG TABLET ONE (08:55)
[2018-03-17] MEDS ORDERED: METHADONE HCL 5 MG TABLET ONE (08:56)
[2018-03-17] MEDS ORDERED: METHADONE HCL 40 MG DISPERSABLE TABLET ONE (08:56)
[2018-03-17] MEDS: METHADONE 40 MG, METHADONE 30 MG, METHADONE 5 MG PO SCH (10:28)
[2018-03-17] MEDS: PRENATAL VITAMINS W/ FOLIC ACID TABLET (FP) PO SCH (10:29)
[2018-03-17] MEDS: THIAMINE HCL 100 MG TABLET (FP) PO SCH (21:39)
[2018-03-17] MEDS: DIPHENOXYLATE 2.5/ATROPINE.025 1 COMBO TABLET PO PRN (21:39)
[2018-03-17] MEDS: MELATONIN 5 MG TABLETS PO PRN (21:39)
[2018-03-17] MEDS ORDERED: HYDROCORTISONE 2.5% TOPICAL CREAM 30 GM TUBE TP PRN (21:40)
[2018-03-17] MEDS ORDERED: PT OWN MED DRAWER 7, Y5N ONE (22:49)
[2018-03-18 07:04] VITALS: BP 115/68; PULSE 54; TEMP 97.7
[2018-03-18] MEDS: DIPHENOXYLATE 2.5/ATROPINE.025 1 COMBO TABLET PO PRN (08:00)
[2018-03-18] MEDS ORDERED: METHADONE HCL 5 MG TABLET ONE (09:21)
[2018-03-18] MEDS ORDERED: METHADONE HCL 10 MG TABLET ONE (09:21)
[2018-03-18] MEDS ORDERED: METHADONE HCL 40 MG DISPERSABLE TABLET ONE (09:21)
[2018-03-18] MEDS: PRENATAL VITAMINS W/ FOLIC ACID TABLET (FP) PO SCH (10:13)
[2018-03-18] MEDS: METHADONE 40 MG, METHADONE 30 MG, METHADONE 5 MG PO SCH (10:13)
== END 2018-03-18 13:55 | disposition left against medical advice (07) | DRG 770 ==
LOC: YASAS 12:48 → Y3W 12:49
PROVIDERS: ADMIT Psychiatry & Neurology Psychiatry; ATTEND Psychiatry & Neurology Psychiatry
PROC: HZ42ZZZ Group Counseling for Substance Abuse Treatment, Cognitive-Behavioral (ICD-10-PCS; principal; 2018-03-15)
DX: F10.20 Alcohol dependence, uncomplicated (principal); F11.20 Opioid dependence, uncomplicated; F14.20 Cocaine dependence, uncomplicated; F17.210 Nicotine dependence, cigarettes, uncomplicated; G47.00 Insomnia, unspecified; B18.2 Chronic viral hepatitis C

== ENCOUNTER 2021-01-26 15:07 | Inpatient (IN) | payer OTHER ==
[2021-01-26 17:59] VITALS: BMI 20.2
[2021-01-26] MEDS ORDERED: IBUPROFEN 400 MG TABLET (FP) PO PRN (19:02)
[2021-01-26] MEDS ORDERED: ACETAMINOPHEN 325 MG TABLET (FP) PO PRN (19:02)
[2021-01-26] MEDS ORDERED: MAGNESIUM HYDROX 2400MG/30ML ORAL SUSPENSION 30 ML CUP PO PRN (19:02)
[2021-01-26] MEDS ORDERED: LOPERAMIDE HCL 2 MG CAPSULE PO PRN (19:02)
[2021-01-26] MEDS ORDERED: MAGNESIUM CITRATE 300 ML BOTTLE PO PRN (19:02)
[2021-01-26] MEDS ORDERED: guaiFENesin 200 MG/10 ML 10 ML UNIT-DOSE CUPS PO PRN (19:02)
[2021-01-26] MEDS ORDERED: MAG HYDROX/AL HYDROX/SIMETH 30 ML UNIT-DOSE CUP PO PRN (19:02)
[2021-01-26] MEDS ORDERED: P-EPHED 60MG/TRIPROLIDI 2.5MG TABLET PO PRN (19:02)
[2021-01-27] MEDS: MELATONIN 5 MG TABLETS PO SCH ×2 (01:25→21:31)
[2021-01-27] MEDS: THIAMINE HCL 100 MG TABLET (FP) PO SCH ×2 (01:25→21:32)
[2021-01-27] MEDS ORDERED: TUBERCULIN PPD 5 TU/0.1ML VIAL ID ONE (01:57)
[2021-01-27] MEDS ORDERED: PRENATAL VITAMINS W/ FOLIC ACID TABLET (FP) PO SCH (10:00)
[2021-01-27] MEDS: methaDONE HCL 40 MG DISPERSABLE TABLET PO SCH (11:03)
[2021-01-27] MEDS ORDERED: ALBUTEROL SO4 HFA INHALER IH PRN (17:49)
[2021-01-27] MEDS ORDERED: ONDANSETRON 4 MG TABLET PO PRN (17:52)
[2021-01-27] MEDS: hydrOXYzine PAMOATE 25 MG CAPSULE (FP) PO PRN ×2 (18:23→21:33)
[2021-01-28 01:34] VITALS: BP 108/62; PULSE 77; TEMP 97.3
[2021-01-28] MEDS: methaDONE HCL 40 MG DISPERSABLE TABLET PO SCH (06:12)
== END 2021-01-28 08:10 | disposition left against medical advice (07) | DRG 770 ==
LOC: YASAS 15:07 → Y5N 23:23
PROVIDERS: ADMIT Allergy & Immunology; ATTEND Allergy & Immunology
PROC: HZ42ZZZ Group Counseling for Substance Abuse Treatment, Cognitive-Behavioral (ICD-10-PCS; principal; 2021-01-26)
DX: F11.20 Opioid dependence, uncomplicated (principal); F14.20 Cocaine dependence, uncomplicated; F17.210 Nicotine dependence, cigarettes, uncomplicated; F41.9 Anxiety disorder, unspecified; F32.9 Major depressive disorder, single episode, unspecified; J45.20 Mild intermittent asthma, uncomplicated; B18.2 Chronic viral hepatitis C; Z56.0 Unemployment, unspecified; Z88.8 Allergy status to other drugs, medicaments and biological substances
CPT/HCPCS: 93005; 93010; C9803; U0003; U0005

== ENCOUNTER 2022-11-22 13:35 | Inpatient (IN) | payer OTHER ==
[2022-11-22 14:14] VITALS: BMI 17.8
[2022-11-22] MEDS ORDERED: IBUPROFEN 600 MG TABLET (FP) PO PRN (19:04)
[2022-11-22] MEDS ORDERED: BISMUTH SUBSALICYLATE 524 MG/30 ML PO PRN (19:04)
[2022-11-22] MEDS ORDERED: POLYETHYLENE GLYCOL (HEALTHYLAX) 3350 17 GM PACKET PO PRN (19:04)
[2022-11-22] MEDS ORDERED: ONDANSETRON *ODT* 4 MG TABLET SL PRN (19:04)
[2022-11-22] MEDS ORDERED: NALOXONE HCL (KLOXXADO) 8 MG SPRAY NS PRN (19:04)
[2022-11-22] MEDS ORDERED: MAG HYDROX/AL HYDROX/SIMETH 30 ML UNIT-DOSE CUP PO PRN (19:04)
[2022-11-22] MEDS ORDERED: DICYCLOMINE HCL 10 MG CAPSULE PO PRN (19:04)
[2022-11-22] MEDS ORDERED: LOPERAMIDE HCL 2 MG CAPSULE PO PRN (19:04)
[2022-11-22] MEDS ORDERED: hydrOXYzine PAMOATE 25 MG CAPSULE (FP) PO PRN (19:04)
[2022-11-22] MEDS ORDERED: BENZONATATE 200 MG CAPSULE PO PRN (19:04)
[2022-11-22] MEDS ORDERED: NALOXONE HCL 0.4 MG/ML VIAL IM PRN (19:04)
[2022-11-22] MEDS ORDERED: IBUPROFEN 400 MG TABLET (FP) PO PRN (19:04)
[2022-11-22] MEDS ORDERED: ACETAMINOPHEN 325 MG TABLET (FP) PO PRN (19:04)
[2022-11-22] MEDS ORDERED: BENZOCAINE/MENTHOL (CHLORASEPTIC ) LOZENGE MM PRN (19:04)
[2022-11-22] MEDS ORDERED: MAGNESIUM HYDROX 2400MG/30ML ORAL SUSPENSION 30 ML CUP PO PRN (19:04)
[2022-11-22] MEDS ORDERED: guaiFENesin 600 MG TABLET.ER (FP) PO PRN (19:04)
[2022-11-22] MEDS ORDERED: METHOCARBAMOL 500 MG TABLET PO PRN (19:04)
[2022-11-22] MEDS ORDERED: ALBUTEROL SO4 HFA INHALER IH PRN (19:50)
[2022-11-22] MEDS: THIAMINE HCL 100 MG TABLET (FP) PO SCH (22:32)
[2022-11-22] MEDS: MELATONIN 5 MG TABLETS PO SCH (22:32)
[2022-11-23] MEDS ORDERED: methaDONE HCL 10 MG TABLET PO ONE (10:18)
[2022-11-23] MEDS ORDERED: LORazepam 1 MG TABLET PO PRN (10:20)
[2022-11-23] MEDS ORDERED: methaDONE 40 MG, methaDONE 10 MG PO ONE (10:45)
[2022-11-23] MEDS ORDERED: LORazepam 2 MG TABLET PO SCH (11:00)
[2022-11-23] MEDS: PRENATAL VITAMINS W/ FOLIC ACID TABLET (FP) PO SCH (11:41)
[2022-11-23 11:55] LABS: HEMATOCRIT 41.5 % (35.4-49); HEMOGLOBIN 14.1 GM/dL (11.7-16.9); MCH 30.1 pg (25.7-33.7); MCHC 33.9 g/dl (32.0-35.9); MEAN CELL VOLUME 88.7 fl (80-96); MEAN PLT VOLUME 9.2 fl (7.5-11.1); PLATELET COUNT 184 10^3/uL (134-434); RBC 4.67 M/mm3 (4.00-5.60); RDW 15.3 % (11.9-15.9)
[2022-11-23 12:00] LABS: POTASSIUM 4.1 mmol/L (3.5-5.1)
[2022-11-23 12:07] LABS: ALBUMIN 3.1 g/dl (3.4-5.0); BLOOD UREA NITROGEN 12.6 mg/dL (7-18); CREATININE 0.7 mg/dL (0.55-1.3)
[2022-11-23 12:08] LABS: BILIRUBIN,TOTAL 0.6 mg/dL (0.2-1); CALCIUM 8.6 mg/dL (8.5-10.1)
[2022-11-23 12:09] LABS: TOT PROT 6.6 g/dl (6.4-8.2)
[2022-11-23] MEDS: LORazepam 1 MG TABLET PO SCH ×2 (18:05→23:34)
[2022-11-23] MEDS: MELATONIN 5 MG TABLETS PO SCH (23:34)
[2022-11-23] MEDS: THIAMINE HCL 100 MG TABLET (FP) PO SCH (23:35)
[2022-11-24] MEDS: methaDONE 40 MG, methaDONE 10 MG PO SCH (05:57)
[2022-11-24] MEDS: LORazepam 1 MG TABLET PO SCH ×4 (05:59→23:30)
[2022-11-24] MEDS ORDERED: methaDONE HCL 10 MG TABLET PO SCH (06:00)
[2022-11-24] MEDS: PRENATAL VITAMINS W/ FOLIC ACID TABLET (FP) PO SCH (11:04)
[2022-11-24] MEDS: THIAMINE HCL 100 MG TABLET (FP) PO SCH (23:30)
[2022-11-24] MEDS: MELATONIN 5 MG TABLETS PO SCH (23:30)
[2022-11-25] MEDS: methaDONE 40 MG, methaDONE 10 MG PO SCH (05:54)
[2022-11-25] MEDS: LORazepam 0.5 MG TABLET PO SCH ×4 (05:55→23:10)
[2022-11-25] MEDS: PRENATAL VITAMINS W/ FOLIC ACID TABLET (FP) PO SCH (11:19)
[2022-11-25] MEDS: MELATONIN 5 MG TABLETS PO SCH (23:10)
[2022-11-25] MEDS: THIAMINE HCL 100 MG TABLET (FP) PO SCH (23:10)
[2022-11-26] MEDS ORDERED: LORazepam 0.5 MG TABLET PO ONE (05:00)
[2022-11-26] MEDS: methaDONE 40 MG, methaDONE 10 MG PO SCH (05:33)
[2022-11-26 07:19] VITALS: BP 108/61; PULSE 71; RESP 17; TEMP 97.8
[2022-11-26] MEDS: PRENATAL VITAMINS W/ FOLIC ACID TABLET (FP) PO SCH (10:47)
== END 2022-11-26 13:03 | disposition home or self-care (01) | DRG 773 ==
LOC: YASAS 13:35 → Y6N 19:48
PROVIDERS: ADMIT Allergy & Immunology; ATTEND Surgery
PROC: HZ2ZZZZ Detoxification Services for Substance Abuse Treatment (ICD-10-PCS; principal; 2022-11-22)
DX: F10.230 Alcohol dependence with withdrawal, uncomplicated (principal); F11.20 Opioid dependence, uncomplicated; F14.20 Cocaine dependence, uncomplicated; F15.20 Other stimulant dependence, uncomplicated; F17.210 Nicotine dependence, cigarettes, uncomplicated; J45.20 Mild intermittent asthma, uncomplicated; B18.2 Chronic viral hepatitis C; R63.4 Abnormal weight loss; Z68.1 Body mass index [BMI] 19.9 or less, adult; Z59.01 Sheltered homelessness
CPT/HCPCS: 36415; 80053; 85027; 86780; 87635; 87811